=== PATIENT | male | born 1985 | race African-American/Black ===

== ENCOUNTER 2017-01-09 15:26 | Emergency (ER) ==
[2017-01-09 15:29] VITALS: BP 131/79
[2017-01-09] MEDS ORDERED: TYLENOL PO ONE (16:14)
--- NOTE | 2017-01-09 16:14 | PROVIDER DOCUMENTATION ---
HPI-EENT General - General Chief Complaint: Sore Throat Stated Complaint: POSS STREP Time Seen by Provider: 01/09/17 16:05 Source: patient, family Allergies/Adverse Reactions: Patient Allergies Allergy/AdvReac Type Severity Reaction Status Date / Time No Known Allergies Allergy Verified 01/09/17 16:30 Home Medications: Home Medication List Medication Instructions Recorded Confirmed Last Taken Type Famotidine [Pepcid] 20 mg PO DAILY #20 tablet 01/09/17 Unknown Rx Ibuprofen [Motrin] 800 mg PO Q8H PRN PRN #20 tablet 01/09/17 Unknown Rx - History of Present Illness-EENT General Nature of Presenting Problem: 31 year old AAM presents with c/o sore throat for 3 days. denies fever, chills, nausea, vomiting, diarrhea, change in appetite. pt is awake, alert, laughing with family at bedside. EENT Location: reports: throat Quality of Pain: reports: sharp, stabbing Severity: reports: mild Onset/Duration: reports: 3 days ago Timing: reports: still present, constant, getting worse Prearrival Treatment: Initiated no prearrival treatment Associated Symptoms: reports: sore throat. denies: ear drainage, fever, malaise , nasal congestion/drainage, poor fluid intake, poor solids intake, sinus infection, tooth pain, voice change - Throat/Dental Throat/Dental Problem Symptoms: reports: sore throat. denies: toothache, jaw pain, swelling of jaw/face, trouble breathing, throat swelling, unable to swallow Recently seen a dentist or have an appointment?: No Review of Systems - Adult - REVIEW OF SYSTEMS - ADULT Constitutional: reports: no symptoms reported. denies: chills, fever, fatique Eyes: reports: no symptoms reported. denies: discharge, blurred vision, double vision, redness Ears, Nose, Mouth & Throat: reports: see HPI, throat pain, throat swelling. denies: ear discharge, ear pain, epistaxis, sinus problem, nose pain, loose teeth, mouth/dental pain, mouth swelling, hoarseness Cardiovascular: reports: no symptoms reported. denies: chest pain, palpitations , syncope Respiratory: reports: no symptoms reported. denies: chronic cough, cough, shortness of breath, wheezing Gastrointestinal: reports: no symptoms reported. denies: abdominal pain, diarrhea, nausea, poor appetite, vomiting Genitourinary: reports: no symptoms reported. denies: dysuria, hematuria, urgency Musculoskeletal: reports: no symptoms reported. denies: bone pain, joint pain, joint swelling, neck pain Integumentary: reports: no symptoms reported. denies: hives, itching, rash, skin thickening Neurological: reports: no symptoms reported. denies: ataxia, paresthesia, tremors Psychiatric: reports: no symptoms reported Endocrine: reports: no symptoms reported Hematologic/Lymphatic: reports: no symptoms reported Allergic/Immunologic: reports: no symptoms reported All Other Systems: Reviewed and Negative Past History - Adult - PAST MEDICAL HISTORY-ADULT Review of Records: reports: Old Records Reviewed, Nursing Assessment Review, Medications Reviewed, Social history reviewed & non-contributory. Major Childhood Illnesses: reports: denies history Cardiovascular: reports: denies history Respiratory: reports: denies history Gastrointestinal: reports: denies history Obstetrical/Gynecological: reports: denies history Genitourinary: reports: denies history Musculoskeletal: reports: denies history Neurological: reports: denies history Endocrine/Immune: reports: denies history Other Conditions: reports: denies history - FAMILY HISTORY Family History: reviewed, not pertinent - SOCIAL HISTORY Smoking: cigarettes, greater than 1 pack/day Provider spent 3-5 mins advising pt. on dangers of tobacco.: Discussed manners to quit use, and f/u contacts for add'l counseling. Substance Use: none/never Alcohol Use Frequency: never Physical Exam- EENT - Physical Exam EENT Initial Vital Signs Reviewed: Yes General Appearance: appears well, alert, no apparent distress. negative: mild distress, moderate distress, severe distress Eye Exam: bilateral eye: normal inspection Ear Exam: bilateral ear: auricle normal, canal normal, TM normal Nasal Exam: normal inspection Throat Exam: normal mouth inspection, pharynx tenderness. negative: pharynx normal (mild erythema), dental tenderness, excessive drooling, foreign body, mandibular swelling, maxillary swelling, pharynx swelling, tongue swollen, tonsillar exudate, tonsillar swelling, trismus, uvula swelling, voice changes Neck: non-tender, full range of motion, supple, normal inspection, lymphadenopathy (left anterior cervical) Respiratory: chest non-tender, lungs clear, normal breath sounds, no pleuratic chest pain, no respiratory distress, no accessory muscle use. negative: respiratory distress, decreased breath sounds, accessory muscle use, crackles, rales, rhonchi Cardiovascular: normal peripheral pulses, regular rate, rhythm Abdominal Exam: normal bowel sounds, non tender, soft Lymphatic: cervical node tenderness Back Exam: normal inspection, no vertebral tenderness. negative: vertebral tenderness Extremity: normal range of motion, non-tender, normal gait, normal inspection, no pedal edema, no calf tenderness, normal capillary refill. negative: deformity, erythema, inflammation Integumentary: normal color, normal turgor, warm/dry Neurologic: grossly normal, no motor/sensory deficits Psych/Mental Status: normal mood/affect, normal thought content, normal thought process, oriented x 3 Progress - PLAN OF CARE/RESULTS Progress/Plan/Lab Results: Orders Category Date Time Status Strep [DIRECT STREP] Stat Lab 01/09/17 15:29 Completed Acetaminophen [Tylenol] Med 01/09/17 16:14 Discontinued 650 mg PO NOW ONE Vital Signs - 24 hr 01/09/17 15:28 Temperature 98.2 F Pulse Rate 86 Respiratory 18 Rate Blood Pressure 131/79 O2 Sat by Pulse 100 Oximetry Departure - Departure Time of Disposition Order: 16:13 DIAGNOSIS: Pharyngitis Qualifiers: Pharyngitis/tonsillitis etiology: other specified organisms Qualified Code(s): J02.8 - Acute pharyngitis due to other specified organisms Disposition: HOME 01 Certified Medical Emergency: Emergent Condition: Stable Additional Instructions: ED Follow Up Instructions: You have been treated by a care provider in the Emergency Department. These instructions are being provided to you so you can have an understanding of how to care for yourself upon discharge. Upon discharge from the Emergency Department, you are responsible for making arrangements for follow-up care by a physician of your choice. Take all prescribed medications as directed. Return to the Emergency Department immediately for any new or worsening symptoms. You may call the Physician Referral phone number at [phone] to obtain a list of Physicians who are taking new patients. Prescriptions: Ibuprofen [Motrin] 800 mg PO Q8H PRN PRN #20 tablet PRN Reason: inflammation Famotidine [Pepcid] 20 mg PO DAILY #20 tablet Referrals: None,PCP [Primary Care Provider] - Forms: Return to School/Parent Work Instructions: Pharyngitis, [id number] Attestation - Physician/ ISAMAR Attestation Patient care was provided by Advanced Practice Provider:: Yes Advanced Practice Provider:: Chase Rascon Advanced Practice Provider documentation review:: The Mid-level provider documentation, treatment plan and medical decision making was reviewed by the physician who agrees with all treatment and medical decision making by the MLP.
== END 2017-01-09 16:37 | disposition home or self-care (01) ==
LOC: ED 15:26
DX: J02.9 Acute pharyngitis, unspecified (principal); R22.1 Localized swelling, mass and lump, neck; R59.0 Localized enlarged lymph nodes; F17.210 Nicotine dependence, cigarettes, uncomplicated; Z71.6 Tobacco abuse counseling
CPT/HCPCS: 87081; 87430